=== PATIENT | male | born 1935 | race Caucasian/White ===

== ENCOUNTER → 2018-01-21 | Outpatient (CLI) | payer OTHER, BC | LOC: BHLMT 15:30 | PROVIDERS: ATTEND Internal Medicine Interventional Cardiology | DX: Z86.79 Personal history of other diseases of the circulatory system (principal) | CPT/HCPCS: 93880-PO ==

== ENCOUNTER → 2018-12-13 | Outpatient (CLI) | payer OTHER, BC | DX: I25.10 Atherosclerotic heart disease of native coronary artery without angina pectoris (principal); I10 Essential (primary) hypertension; I70.1 Atherosclerosis of renal artery; I73.9 Peripheral vascular disease, unspecified; E78.5 Hyperlipidemia, unspecified; I44.0 Atrioventricular block, first degree ==

== ENCOUNTER → 2018-12-21 | Outpatient (CLI) | payer OTHER, BC | LOC: FIMAGING 13:09 | PROVIDERS: ATTEND Internal Medicine Cardiovascular Disease | DX: N13.30 Unspecified hydronephrosis (principal); N32.89 Other specified disorders of bladder; I10 Essential (primary) hypertension; I25.10 Atherosclerotic heart disease of native coronary artery without angina pectoris ==